=== PATIENT | female | born 1980 | race Caucasian/White ===

== ENCOUNTER → 2023-05-15 | Outpatient (CLI) | payer BC ==
[~2023-05-15] MED LIST: ALPR.5; Budeprion Xl300 MG; Crutch1 EACH MISC; FAMO20 PO; HYDACE5 PO; LORA.5 PO; MULVITMIND PO; NYST237S MT; Naprosyn500 MG PO; OMEP20ER PO; Percocet 5-3251 EACH PO; SERT25 PO; SUCR1 PO
[2023-05-20 14:10] LABS: HPV 16 Negative (Negative); HPV 18 Negative (Negative); HPV OTHER HR TYPES Negative (Negative)
== END ==
LOC: LAB 17:19 → LAB SHORT 17:19
PROVIDERS: Family Medicine
DX: Z12.4 Encounter for screening for malignant neoplasm of cervix (principal)
CPT/HCPCS: 87624; G0145

== ENCOUNTER → 2023-05-15 | Outpatient (CLI) | payer BC | LOC: LAB 07:35 → LAB SHORT 07:35 | DX: N84.1 Polyp of cervix uteri (principal) | CPT/HCPCS: 88305 ==